=== PATIENT | female | born 1950 | race African-American/Black ===

== ENCOUNTER 2019-03-17 17:19 | Emergency (ER) | payer MEDICARE, OTHER ==
[~2019-03-17] VITALS: Ht 167.6 cm; Wt 65.0 kg
[~2019-03-17 17:19] MED LIST: ASPI-986 PO; HCTZ; LISI20TA; MVI
[2019-03-17 17:30] VITALS: BP 175/86
== END 2019-03-17 23:20 | disposition left against medical advice (07) ==
LOC: ER 17:19
DX: Z53.21 Procedure and treatment not carried out due to patient leaving prior to being seen by health care provider (principal)